=== PATIENT | female | born 1975 | race Caucasian/White ===

== ENCOUNTER 2020-07-17 09:26 | Emergency (ER) | payer BC ==
[~2020-07-17] VITALS: Ht 170.2 cm; Wt 72.6 kg
[2020-07-17] MEDS ORDERED: IV NORMAL SALINE 1000ML BAG 1,000 ML IV ONE (10:00)
[2020-07-17 10:07] LABS: BASO # 0.1 x10^3/uL (0.0-0.2); BASO % 1 % (0-3); EOS # 0.2 x10^3/uL (0.0-0.7); EOS % 1 % (0-3); HEMATOCRIT 43.7 % (36.0-47.0); HEMOGLOBIN 14.2 g/dL (12.0-15.5); LYMPH # 4.2 x10^3/uL (1.0-4.8); LYMPH % 33 % (24-48); MEAN CORPUSCULAR HEMOGLOBIN 32 pg (25-35); MEAN CORPUSCULAR HGB CONC 32 g/dL (31-37); MEAN CORPUSCULAR VOLUME 97 fL (79-100); MONO # 0.9 x10^3/uL (0.0-1.1); MONO % 7 % (0-9); NEUT # 7.3 x10^3/uL (1.8-7.7); NEUT % 58 % (31-73); PLATELET COUNT 306 x10^3/uL (140-400); RED CELL DISTRIBUTION WIDTH 13.8 % (11.5-14.5); WHITE BLOOD COUNT 12.7 x10^3/uL (4.0-11.0)
[2020-07-17] MEDS ORDERED: MULTIVIT INFUSN,ADULT 4,VIT K 10 ML, THIAMINE INJ 100 MG, FOLIC ACID INJ 1 MG in IV NOR... IV ONE (10:15)
[2020-07-17] MEDS ORDERED: DIPH,PERTUSS(ACELL),TET VAC/PF 0.5 ML SYRINGE. VAX IM ONE (10:15)
[2020-07-17] MEDS ORDERED: NEOMY/BACITR/POLYMYXIN OINT PACKET. TP ONE (10:15)
[2020-07-17 10:20] LABS: CALCIUM 8.6 mg/dL (8.5-10.1); GFR 60.8; POTASSIUM 3.4 mmol/L (3.5-5.1)
[2020-07-17 10:21] LABS: PROTHROMBIN TIME PATIENT 13.3 SEC (11.7-14.0)
[2020-07-17 10:26] LABS: ALBUMIN/GLOBULIN RATIO 1.1 (1.0-1.7); TOTAL BILIRUBIN 0.7 mg/dL (0.2-1.0); TOTAL PROTEIN 7.5 g/dL (6.4-8.2)
--- NOTE | 2020-07-17 10:29 | PHYS DOC ---
Past Medical History Past Medical History: No Pertinent History Past Surgical History: Other Additional Past Surgical Histo: BACK SURGERY X2, UTERINE ABLATION Smoking Status: Never Smoker Alcohol Use: Occasionally Drug Use: None General Adult EDM: Chief Complaint: HYPERTENSION HPI: HPI: 44-year-old female presents to the department after being referred by an urgent care for back pain and high blood pressure. Patient was in the waiting room of the emergency department when she stood up abruptly made a noise and fell forward hitting her head as she fell. It was not seen where she hit her head but there is a small laceration on the crown of her head. Patient then began to have a tonic-clonic seizure for 30 seconds. Patient is postictal upon interview. She is having short-term memory issues, as she cannot recall the event and asked the same question multiple times in a row. She does not member why she is here and she does not remember falling. Patient denies any headaches, any lightheadedness, shortness of breath, chest pain. The patient is anxious upon examination and interview. The patient has no previous medical history of any type of seizures. Patient has given varying histories to different medical chemist stating that she does not member the last time she drank alcohol was, then changes it to say she had alcohol the previous day. She states that she is not frequent alcohol drinker, but does state that she did drink alcohol last night but does not member the amount that she drank. Patient states that she did not take any medications this morning or last night. She does have a past medical history of major depressive disorder, but she inconsistently takes her medications. Pain denies any changes in vision or headaches currently. Review of Systems: Review of Systems: Constitutional: Denies fever or chills Eyes: Denies redness or eye pain HENT: Denies nasal congestion or sore throat Respiratory: Denies cough or shortness of breath Cardiovascular: Denies chest pain or palpitations GI: Denies abdominal pain, nausea, or vomiting : Denies dysuria or hematuria Musculoskeletal: Denies back pain or joint pain Integument: Denies rash or skin lesions Neurologic: Denies headache, focal weakness or sensory changes Complete systems were reviewed and found to be within normal limits, except as documented in this note. Current Medications: Current Medications Medications (Trade) Dose Ordered Sig/Brianna Start Time Stop Time Status Last Admin Dose Admin Diphtheria/ Tetanus/Acell Pertussis (ADACEL TDap SYRINGE) 0.5 ml ONCE ONCE 07/17/20 10:15 07/17/20 10:16 DC Lorazepam (Ativan Inj) 1 mg 1X ONCE 07/17/20 10:00 07/17/20 10:01 DC Multivitamins 10 ml/Thiamine HCl 100 mg/Folic Acid 1 mg/Sodium Chloride 1,011.2 ml @ 1,000.088 mls/hr 1X ONCE 07/17/20 10:15 07/17/20 11:15 Neomycin/ Polymyxin/ Bacitracin (Triple Antibiotic Ointment) 1 pkt 1X ONCE 07/17/20 10:15 07/17/20 10:16 DC Sodium Chloride 1,000 ml @ 1,000 mls/hr 1X ONCE 07/17/20 10:00 07/17/20 10:59 Allergies: Allergies: Allergies Coded Allergies Type Severity Reaction Last Updated Verified No Known Drug Allergies 02/27/15 No Physical Exam: PE: Constitutional: Well developed, well nourished, no acute distress, non-toxic appearance HENT: Normocephalic, atraumatic Eyes: PERRL, EOMI, conjunctiva normal, no discharge Neck: Normal range of motion, no tenderness, supple Lungs & Thorax: Equal rise and fall of chest bilaterally, no acute respiratory distress Abdomen: Soft, no tenderness Skin: Warm, dry, no erythema, no rash Back: No tenderness, CVA tenderness reported on the right Extremities: No tenderness, ROM intact, no edema Neurologic: Alert and oriented X 2 normal motor function, normal sensory function, no focal deficits noted. Patient does not recall how she got here or why she is here. Psychologic: Affect normal, judgment normal Current Patient Data: Labs: Laboratory Tests Test 07/17/20 09:55 Prothrombin Time 13.3 SEC (11.7-14.0) Prothrombin Time INR 1.1 (0.8-1.1) Activated Partial Thromboplast Time 25 SEC (24-38) Sodium Level 137 mmol/L (136-145) Potassium Level 3.4 mmol/L (3.5-5.1) L Chloride Level 98 mmol/L (98-107) Carbon Dioxide Level 15 mmol/L (21-32) L Anion Gap 24 (6-14) H Blood Urea Nitrogen 8 mg/dL (7-20) Creatinine 1.0 mg/dL (0.6-1.0) Estimated GFR (Cockcroft-Gault) 60.8 BUN/Creatinine Ratio 8 (6-20) Glucose Level 117 mg/dL (70-99) H Calcium Level 8.6 mg/dL (8.5-10.1) Total Bilirubin Pending Aspartate Amino Transferase (AST) Pending Alanine Aminotransferase (ALT) Pending Alkaline Phosphatase Pending Total Protein Pending Albumin Pending Albumin/Globulin Ratio Pending Lipase Pending Ethyl Alcohol Level < 10 mg/dL (0-10) Laboratory Tests 07/17/20 09:55 Vital Signs: Vital Signs Date Time Temp Pulse Resp B/P (MAP) Pulse Ox O2 Delivery O2 Flow Rate FiO2 07/17/20 09:41 97.8 113 20 172/94 (120) 97 Room Air 97.8 EKG: EKG: @0946, Sinus tachycardia 107 BPM, sinus rhythm, QT/QTc= 356/481, QRS = 92, IP=695, No ST elevations Radiology/Procedures: Radiology/Procedures: [] Course & Med Decision Making: Course & Med Decision Making Pertinent Labs and Imaging studies reviewed. (See chart for details) [] Dragon Disclaimer: Dragon Disclaimer: This electronic medical record was generated, in whole or in part, using a voice recognition dictation system. Departure Departure Impression: Primary Impression: Alcohol withdrawal seizure Qualified Codes: F10.230 - Alcohol dependence with withdrawal, uncomplicated Additional Impressions: Cocaine abuse Marijuana abuse Scalp abrasion Qualified Codes: S00.01XA - Abrasion of scalp, initial encounter Lactic acidosis Left against medical advice Disposition: 07 AGAINST MEDICAL ADVICE Condition: GUARDED Referrals: UNKNOWN PCP NAME (PCP) Patient Instructions: Abrasion, [id number], Alcohol Withdrawal, [id number], Alcohol and Drug Addiction, Finding Treatment, Alcohol, FAQs, Chronic Alcoholism, Discharge Against Medical Advice, Seizure, Adult, [id number] Justicifation of Admission Dx: Justifications for Admission: Justification of Admission Dx: N/A TOMAS ROJAS DO Jul 17, 2020 10:29
[2020-07-17 10:55] LABS: BARBITURATES NEG (NEG); BENZODIAZEPINES NEG (NEG); CANNABINOIDS POS (NEG); COCAINE POS (NEG); METHADONE NEG (NEG); OPIATES NEG (NEG); PHENCYCLIDINE NEG (NEG)
[2020-07-17 10:57] LABS: AMPHETAMINE/METHAMPHETAMINE NEG (NEG)
[2020-07-17 11:03] LABS: U PREG PATIENT NEGATIVE (NEG)
--- NOTE | 2020-07-17 11:21 | RAD ---
CT scan of the head without contrast 07/17/2020 Clinical History: Head injury. Technique: Unenhanced, contiguous, 5 mm axial sections were obtained through the head. One or more of the following individualized dose reduction techniques were utilized for this study: 1. Automated exposure control. 2. Adjustment of the mA and/or kV according to patient size. 3. Use of iterative reconstruction technique. Findings: The ventricles and sulci are within normal limits in size and configuration. No acute parenchymal abnormality is seen. No extra-axial fluid collection is noted. No skull fracture is seen. Soft tissue swelling is seen involving the frontal scalp. Impression: No acute intracranial abnormality is seen. CT scan of the cervical spine without contrast 07/17/2020 Clinical history: Neck injury. Technique: Unenhanced, contiguous, 0.625 mm axial sections were obtained through the cervical spine. Axial, coronal and sagittal reconstructed images were obtained. One or more of the following individualized dose reduction techniques were utilized for this study: 1. Automated exposure control. 2. Adjustment of the mA and/or kV according to patient size. 3. Use of iterative reconstruction technique. Findings: Sagittal and coronal reconstructed images demonstrate minimal lateral curvature of the cervical spine, convex to the left. There is straightening of the normal cervical lordosis. No fracture or subluxation of the cervical vertebrae is seen. Impression: No fracture or subluxation of the cervical vertebra is identified. Electronically signed by: Stepan Salinas MD (07/17/2020 11:19 AM) [id number]
--- NOTE | 2020-07-17 11:33 | EKG ---
[facility] [address] [place] [address] Test Date: 2020-07-17 Test Time: 09:46:03 Pat Name: TYRESE EGAN Department: Room: Gender: F [employer]: [employer] : 1975 Requested By: TOMAS ROJAS Order Number: [id number] Reading MD: Measurements Intervals [place] Rate: 107 P: 48 [place]: 158 QRS: 40 QRSD: 92 T: 36 QT: 356 QTc: 481 Interpretive Statements SINUS TACHYCARDIA OTHERWISE NORMAL ECG RI6.02 No previous ECG available for comparison
[2020-07-17 12:13] VITALS: BP 146/87
== END 2020-07-17 12:38 | disposition left against medical advice (07) ==
LOC: ER 09:26
DX: S00.01XA Abrasion of scalp, initial encounter (principal); R56.9 Unspecified convulsions; F10.230 Alcohol dependence with withdrawal, uncomplicated; Y90.0 Blood alcohol level of less than 20 mg/100 ml; E87.2 Acidosis; F12.10 Cannabis abuse, uncomplicated; F14.10 Cocaine abuse, uncomplicated; R00.0 Tachycardia, unspecified; W18.09XA Striking against other object with subsequent fall, initial encounter; Y93.89 Activity, other specified; Y92.89 Other specified places as the place of occurrence of the external cause; Y99.8 Other external cause status
CPT/HCPCS: 36415; 70450; 72125; 80053; 80307; 81025; 82553; 83605; 83690; 84484; 85025; 85610; 85730; 90471; 90715; 93005; 96365; 96366; 96375; 99285; G0480; J2060; J3411; J3490; J7030